=== PATIENT | female | born 1975 | race African-American/Black ===

== ENCOUNTER 2018-08-17 14:56 | Emergency (ER) | payer SELFPAY ==
[~2018-08-17] VITALS: Ht 170.2 cm; Wt 107.0 kg
[2018-08-17] MEDS ORDERED: IBUPROFEN 600MG TABLET PO ONE (17:45)
[2018-08-17 17:54] VITALS: BP 130/89
== END 2018-08-17 18:36 | disposition home or self-care (01) ==
LOC: ER 14:56
DX: S39.012A Strain of muscle, fascia and tendon of lower back, initial encounter (principal); S16.1XXA Strain of muscle, fascia and tendon at neck level, initial encounter; V49.49XA Driver injured in collision with other motor vehicles in traffic accident, initial encounter; Y93.89 Activity, other specified; Y92.89 Other specified places as the place of occurrence of the external cause; Y99.8 Other external cause status; Z88.0 Allergy status to penicillin; Z98.890 Other specified postprocedural states
CPT/HCPCS: 99282

== ENCOUNTER 2020-02-03 17:49 | Emergency (ER) | payer MEDICAID ==
[~2020-02-03] VITALS: Ht 172.7 cm; Wt 104.3 kg
[2020-02-03 19:17] VITALS: BP 162/98
== END 2020-02-03 19:22 | disposition home or self-care (01) ==
LOC: ER 17:49
DX: Z20.818 Contact with and (suspected) exposure to other bacterial communicable diseases (principal); J11.1 Influenza due to unidentified influenza virus with other respiratory manifestations; Z71.89 Other specified counseling
CPT/HCPCS: 99282

== ENCOUNTER 2022-04-16 11:53 | Inpatient (IN) | payer MEDICAID ==
[~2022-04-16] VITALS: Ht 172.7 cm; Wt 104.9 kg
[2022-04-16 15:26] LABS: BASOPHILS % 0.5 % (0.0-2.0); CHLORIDE 105 mEq/L (98-107); EOSINOPHILS % 0.5 % (0.0-5.0); HEMOGLOBIN. 14.5 g/dL (12.0-16.0); LYMPHOCYTES % 35.2 % (20.0-50.0); MEAN CORPUSCULAR HEMOGLOBIN 29.1 pg (28.0-32.0); MEAN CORPUSCULAR VOLUME 88.2 fL (81.0-99.0); MONOCYTES % 7.5 % (2.0-8.0); NEUTROPHILS % 56.3 % (40.0-76.0); PLATELET 195 x1000/uL (130-400); RED BLOOD CELL COUNT 4.99 mill/uL (4.2-5.4); RED CELL DISTRIBUTION WIDTH 13.1 % (11.6-14.6)
[2022-04-16 15:43] LABS: B-HCG QUANTITATIVE < 1 mIU/mL (<3); ETHANOL BLOOD < 10 mg/dL
[2022-04-16 18:42] LABS: CLARITY URINE CLOUDY (CLEAR); COLOR URINE YELLOW (YELLOW); KETONES URINE 2+ (NEGATIVE); LEUKOCYTE ESTERASE URINE 2+ (NEGATIVE); NITRITE URINE NEGATIVE (NEGATIVE); OCCULT BLOOD URINE NEGATIVE (NEGATIVE); PROTEIN URINE 1+ (NEGATIVE); SPECIFIC GRAVITY URINE 1.044 (1.005-1.030)
[2022-04-16] MEDS ORDERED: ASPIRIN 325MG EC TABLET PO ONE (18:45)
[2022-04-16 18:59] LABS: *AMPHETAMINES SCREEN URINE NEGATIVE (NEGATIVE); *BARBITURATES SCREEN URINE NEGATIVE (NEGATIVE); *BENZODIAZEPINES SCREEN URINE NEGATIVE (NEGATIVE); *COCAINE SCREEN URINE NEGATIVE (NEGATIVE); METHADONE URINE SCREEN NEGATIVE (NEGATIVE); OPIATES URINE SCREEN NEGATIVE (NEGATIVE); PHENCYCLIDINE URINE SCREEN NEGATIVE (NEGATIVE)
[2022-04-16 19:03] LABS: CANNABINOID URINE SCREEN PRESUMTIVE POSITIVE (NEGATIVE)
[2022-04-16] MEDS ORDERED: IOHEXOL-350 100 ML BOTTLE ONE (19:05)
[2022-04-16] MEDS ORDERED: LEVOFLOXACIN 750MG PREMIX 150 ML IV ONE (19:30)
[2022-04-17 02:46] VITALS: BP 157/88
[2022-04-17 04:00] VITALS: BP 152/82
[2022-04-17 08:00] VITALS: BP 140/88
[2022-04-17 12:00] VITALS: BP 140/95
[2022-04-17] MEDS ORDERED: ONDANSETRON HCL 4MG/2ML INJ IV PRN (14:45)
[2022-04-17] MEDS ORDERED: CLONIDINE 0.1MG TABLET PO PRN (14:45)
[2022-04-17] MEDS ORDERED: ACETAMINOPHEN 325MG TABLET PO PRN (14:45)
[2022-04-17] MEDS ORDERED: ENOXAPARIN 40MG/0.4ML SYR SUBCUT SCH (15:00)
[2022-04-17] MEDS: LISINOPRIL 10MG TABLET PO SCH (15:33)
[2022-04-17 16:00] VITALS: BP 141/86
[2022-04-17] MEDS: LEVOFLOXACIN 500MG PREMIX 100 ML IV SCH (18:10)
[2022-04-17] MEDS: ENOXAPARIN 30MG/0.3ML SYR SUBCUT SCH (18:11)
[2022-04-17] MEDS ORDERED: DEXTROSE 50% WATER 50ML SYRINGE IV PRN (19:00)
[2022-04-17 20:00] VITALS: BP 140/96
[2022-04-17] MEDS: BLOOD SUGAR DIAGNOSTIC STRIP TEST SCH (21:03)
[2022-04-17] MEDS: INSULIN LISPRO 100 UNITS/ML SUBCUT SCH (21:10)
[2022-04-18] VITALS: BP 142/82
[2022-04-18 01:27] LABS: CREATINE KINASE 106 IU/L (26-192); CREATINE KINASE MB FRACTION < 1.0 ng/mL (0.5-3.6)
[2022-04-18 04:00] VITALS: BP_SYST 135; BP_SYST 140; BP_DIAS 84; BP_DIAS 92
[2022-04-18] MEDS: ENOXAPARIN 30MG/0.3ML SYR SUBCUT SCH (05:45)
[2022-04-18] MEDS: BLOOD SUGAR DIAGNOSTIC STRIP TEST SCH ×3 (06:20→17:07)
[2022-04-18 07:03] LABS: BASOPHILS % 0.5 % (0.0-2.0); EOSINOPHILS % 0.7 % (0.0-5.0); HEMATOCRIT. 42.9 % (36.0-48.0); HEMOGLOBIN. 14.3 g/dL (12.0-16.0); LYMPHOCYTES % 36.7 % (20.0-50.0); MEAN CORPUSCULAR HEMOGLOBIN 29.3 pg (28.0-32.0); MEAN CORPUSCULAR VOLUME 88.1 fL (81.0-99.0); MEAN PLATELET VOLUME 9.5 fl (7.4-10.4); MONOCYTES % 9.3 % (2.0-8.0); NEUTROPHILS % 52.8 % (40.0-76.0); PLATELET 202 x1000/uL (130-400); RED BLOOD CELL COUNT 4.87 mill/uL (4.2-5.4); RED CELL DISTRIBUTION WIDTH 13.1 % (11.6-14.6)
[2022-04-18] MEDS ORDERED: PANTOPRAZOLE 40MG DR TABLET PO SCH (07:20)
[2022-04-18 07:51] LABS: CREATINE KINASE 110 IU/L (26-192); CREATINE KINASE MB FRACTION < 1.0 ng/mL (0.5-3.6)
[2022-04-18 08:00] VITALS: BP 143/90
[2022-04-18] MEDS: INSULIN LISPRO 100 UNITS/ML SUBCUT SCH ×3 (08:25→17:22)
[2022-04-18] MEDS: LISINOPRIL 10MG TABLET PO SCH (08:26)
[2022-04-18 08:57] LABS: CHLORIDE 102 mEq/L (98-107)
[2022-04-18] MEDS ORDERED: ASPIRIN 81MG TABLET PO SCH (09:00)
[2022-04-18 09:17] LABS: HDL CHOLESTEROL 56 mg/dL (40-59); LDL CHOLESTEROL 130 mg/dL (5-100)
[2022-04-18] MEDS ORDERED: HYDROCHLOROTHIAZIDE 25MG TABLET PO SCH (11:30)
[2022-04-18 12:00] VITALS: BP 139/86
[2022-04-18] MEDS ORDERED: INSULIN GLARGINE 100 UNITS/ML SUBCUT SCH (13:30)
[2022-04-18 16:00] VITALS: BP 150/95
[2022-04-18] MEDS: LEVOFLOXACIN 500MG PREMIX 100 ML IV SCH (16:00)
[2022-04-18] MEDS ORDERED: METFORMIN HCL 500MG TABLET PO SCH (17:50)
[2022-04-18 18:02] VITALS: BP 150/95
[2022-04-18] MEDS ORDERED: ATORVASTATIN CALCIUM 40MG TABLET PO SCH (21:00)
[2022-04-19] MEDS ORDERED: GLIPIZIDE 5MG TABLET PO SCH (07:20)
== END 2022-04-18 18:37 | disposition home or self-care (01) | DRG 47 ==
LOC: ER 12:01 → 6WST 20:24 → EDBEDREQ 20:37 → EDBEDREQSVC 20:37 → EDBEDREQTM 20:37 → ENRESERV 04-17 00:42
PROVIDERS: ADMIT Internal Medicine; ATTEND Internal Medicine
DX: G45.9 Transient cerebral ischemic attack, unspecified (principal); E11.22 Type 2 diabetes mellitus with diabetic chronic kidney disease; N18.9 Chronic kidney disease, unspecified; R29.702 NIHSS score 2; R20.0 Anesthesia of skin; R20.2 Paresthesia of skin; R26.89 Other abnormalities of gait and mobility; E11.65 Type 2 diabetes mellitus with hyperglycemia; N39.0 Urinary tract infection, site not specified; I12.9 Hypertensive chronic kidney disease with stage 1 through stage 4 chronic kidney disease, or unspecified chronic kidney disease; Z88.0 Allergy status to penicillin; Z98.891 History of uterine scar from previous surgery; Z82.49 Family history of ischemic heart disease and other diseases of the circulatory system
CPT/HCPCS: 36415; 70496; 70498; 70551; 71045; 80048; 80053; 80061; 80305; 80320; 81003; 82550; 82553; 82962; 83036; 84484; 84702; 85025; 93005; 93306; 93970; 99285; J1650; J1815; J1956; J7060; Q9967; G0480